=== PATIENT | female | born 1950 | race Caucasian/White ===

== ENCOUNTER → 2018-09-02 | Outpatient (CLI) | payer MEDICARE ==
--- NOTE | 2018-09-02 10:10 | US ---
EXAMINATION TYPE: US abdomen complete DATE OF EXAM: 09/02/2018 COMPARISON: NONE CLINICAL HISTORY: R10.13 Epigastric pain. acid reflux EXAM MEASUREMENTS: Liver Length: 17.1 cm Gallbladder Wall: 0.2 cm CBD: 0.5 cm Spleen: 9.6 cm Right Kidney: 10.3 x 5.3 x 4.5 cm Left Kidney: 9.9 x 4.7 x 6.2 cm Large body habitus Pancreas: wnl Liver: There is increased echogenicity of the hepatic parenchyma with diminished visualization of th e portal triads most commonly relating to hepatic steatosis and limiting evaluation for underlying he patic masses. Gallbladder: wnl Evidence for sonographic Quiros's sign: no CBD: wnl Spleen: wnl Right Kidney: wnl Left Kidney: wnl Upper IVC: wnl Abd Aorta: wnl The intrahepatic portion of the IVC and proximal abdominal aorta are within normal limits. There is no evidence of cholelithiasis. Common bile duct is unremarkable. The visualized portions of the hughes creas are homogenous. The spleen is unremarkable. Kidneys are symmetric and free of hydronephrosis. No renal lesions are seen. IMPRESSION: 1. No sonographic evidence of cholelithiasis nor acute cholecystitis. 2. Findings most commonly related to hepatic steatosis. Correlate with liver function tests.
== END | disposition home or self-care (01) ==
LOC: RADUSWWP 08:07
PROVIDERS: ATTEND Family Medicine
DX: K76.0 Fatty (change of) liver, not elsewhere classified (principal); R10.13 Epigastric pain
CPT/HCPCS: 76700

== ENCOUNTER → 2018-10-10 | Outpatient (CLI) | payer MEDICARE ==
--- NOTE | 2018-10-14 09:00 | MM ---
Reason for exam: screening (asymptomatic). Last mammogram was performed 2 years and 2 months ago. History: Patient is postmenopausal, history of other cancer, and is nulliparous. Family history of breast cancer in maternal aunt, breast cancer in maternal cousin, and breast cancer in sister. Benign right mammotome panel of the right breast, October 05, 2006. Reduction of the left breast, March 2004. Reduction of the right breast. Took estrogen for 16 years beginning at age 39. Took progesterone for 16 years beginning at age 39. Physical Findings: A clinical breast exam by your physician is recommended on an annual basis and results should be correlated with mammographic findings. MG 3D Screening Mammo W/Cad Bilateral CC and MLO view(s) were taken. Prior study comparison: August 18, 2016, bilateral MG 3d diag mammo w/cad NANCY. August 17, 2015, bilateral MG 3d diag mammo w/cad NANCY. There are scattered fibroglandular densities. Previous mammotome biopsy in the right breast. Focal asymmetry right upper outer quadrant is stable. No significant changes when compared with prior studies. ASSESSMENT: Benign, BI-RAD 2 RECOMMENDATION: Routine screening mammogram of both breasts in 1 year.
== END | disposition home or self-care (01) ==
LOC: RADMAMWWP 14:11
PROVIDERS: ATTEND Family Medicine
DX: Z12.31 Encounter for screening mammogram for malignant neoplasm of breast (principal)
CPT/HCPCS: 77063; 77067

== ENCOUNTER → 2018-10-15 | Outpatient (CLI) | payer MEDICARE ==
--- NOTE | 2018-10-15 15:46 | NM ---
EXAMINATION TYPE: NM hepatobiliary w EF DATE OF EXAM: 10/15/2018 COMPARISON: Abdominal ultrasound March 02, 2019 HISTORY: Epigastric abdominal pain per order. Additional symptoms of heartburn and reflux per patient . TECHNIQUE: After the intravenous administration of 4.24 mCi Tc 99m Mebrofenin hepatobiliary scintigra phy is performed. Immediate images post injection. FINDINGS: There is heterogeneous poor initial accumulation of tracer by the liver presumed product of underlyin g diffuse fatty infiltration as suspected on recent ultrasound. The gallbladder is visualized within 25 minutes. The small bowel activity is noted within 30 minutes. At one hour 8 ounces of oral ensu re plus is given to mimic CCK and gallbladder ejection fraction is calculated at 84 %, not deviated f rom the normal range. Therefore there is no scintigraphic evidence of cystic or common bile duct obs truction to suggest acute cholecystitis. IMPRESSION: Ejection fraction is 84%, some consider this abnormal or a hyperkinetic response.
== END ==
LOC: RADNMMAIN 12:34
PROVIDERS: ATTEND Family Medicine
DX: R10.13 Epigastric pain (principal)
CPT/HCPCS: 78226; A9537

== ENCOUNTER 2018-10-16 13:14 | Day surgery (SDC) | payer MEDICARE ==
[2018-10-14 16:36] VITALS: BMI 31.6
[~2018-10-16 13:14] MED LIST: DEXAMETHASONE SOD PHOSPHATE 10 MG/ML 1 ML VIAL IV ONE; LIDOCAINE 1% 20 ML VIAL (10MG/ML) FOR IV START INTRADERMA PRN; MIDAZOLAM (PF) 2 MG/2 ML VIAL IV PRN; ONDANSETRON 4 MG/2 ML VIAL IVP ONE; SCOPOLAMINE 1.5MG/72HR PATCH TRANSDERM ONE; ceFAZolin IN SWFI 2 GM/20 ML SYRINGE IVP ONE
[2018-10-16] MEDS: LACTATED RINGERS 1,000 ML IV SCH ×2 (13:51→14:25)
[2018-10-16] MEDS: fentaNYL (PF) 50 MCG/ML 2 ML AMP IV ONE ×2 (14:07→14:10)
[2018-10-16] MEDS ORDERED: SUCCINYLCHOLINE CHLORIDE 100 MG/5 ML SYR IV ONE (14:20)
[2018-10-16] MEDS ORDERED: fentaNYL (PF) 50 MCG/ML 2 ML AMP ONE (14:20)
[2018-10-16] MEDS ORDERED: PROPOFOL 10 MG/ML 20 ML VIAL IV ONE (14:20)
[2018-10-16] MEDS ORDERED: LIDOCAINE 1% INJ 10MG/ML (20 ML MDV) ONE (14:20)
[2018-10-16] MEDS ORDERED: MIDAZOLAM 2 MG/2 ML VIAL ONE (14:20)
[2018-10-16] MEDS ORDERED: ROPIVACAINE 5 MG/ML 30 ML VIAL ONE (14:20)
[2018-10-16] MEDS ORDERED: NEOSTIGMINE 1 MG/ML 10 ML VIAL ONE (14:20)
[2018-10-16] MEDS ORDERED: PHENYLEPHRINE-0.9% NACL SYG 1 MG/10 ML SYRINGE ONE (14:20)
[2018-10-16] MEDS ORDERED: ROCURONIUM BROMIDE 10 MG/ML 10 ML VIAL IV ONE (14:20)
[2018-10-16] MEDS ORDERED: GLYCOPYRROLATE 0.2 MG/ML 2 ML VIAL ONE (14:20)
--- NOTE | 2018-10-16 15:02 | P.ONQ ---
Anesthesiology Proc Note - PNB - Peripheral Nerve Block Performed Right Popliteal Single Time Out Performed: Yes Procedure Start Time: 14:05 Procedure Stop Time: 14:11 Indication: Acute Post-Operative Pain, Requested by physician Sedation Type: Sedate with meaningful contact maintained Preparation: Sterile Prep Position: Supine Catheter: None Needle Types: Facet Needle Size: 100mm (4") Needle Gauge: 20 Technique: Ultrasound Injectate: 0.5% Ropivacaine (see comment for volume) (15 mls) Blood Aspirated: No Pain Paresthesia on Injection Noted: No Resistance on Injection: Normal Events: Uneventful and Well Tolerated
--- NOTE | 2018-10-16 15:03 | P.ONQ ---
Anesthesiology Proc Note - PNB - Peripheral Nerve Block Performed Right Adductor Canal Single Time Out Performed: Yes Procedure Start Time: 14:12 Procedure Stop Time: 14:17 Indication: Acute Post-Operative Pain, Requested by physician Sedation Type: Sedate with meaningful contact maintained Preparation: Sterile Prep Position: Supine Catheter: None Needle Types: Facet Needle Size: 100mm (4") Needle Gauge: 20 Technique: Ultrasound Injectate: 0.5% Ropivacaine (see comment for volume) (15 mls) Blood Aspirated: No Pain Paresthesia on Injection Noted: No Resistance on Injection: Normal Events: Uneventful and Well Tolerated
[2018-10-16] MEDS ORDERED: LACTATED RINGERS 1,000 ML IV ONE (15:39)
--- NOTE | 2018-10-16 17:45 | P.OP ---
Date of Procedure: 10/16/18 Preoperative Diagnosis: 1. Right trimalleolar ankle fracture Postoperative Diagnosis: Same Procedure(s) Performed: 1. Open reduction internal fixation of trimalleolar ankle fracture (open reduction internal fixation of lateral, medial, and posterior malleolus) 2. Manual application of joint stress for radiography by physician, right ankle 3. Application of short leg splint by physician, right ankle Anesthesia: RONA, regional Surgeon: Brian Martinez Booking Agent #1: Ronit Patel Estimated Blood Loss (ml): 25 IV fluids (ml): 1,200 Pathology: none sent Condition: stable Disposition: PACU Indications for Procedure: The patient is very pleasant. Is healthy 68-year-old female who slipped on the ice while visiting a friend in [facility] and sustained an isolated injury to her right ankle. She was seen at a local urgent care where she was diagnosed with a grossly unstable trimalleolar ankle fracture. She underwent closed reduction and splinting. She also had a computed tomography scan and CT angiogram. She lives in this area and follow up with me in the office. I met with the patient preoperatively to discuss treatment options. I recommended open reduction internal fixation. She was seen by her primary care physician who cleared her for surgery. We discussed potential risks, patient of surgery including but not limited to risk of anesthesia, superficial infection, deep infection, delayed wound healing, nonunion the fracture site, malunion the fracture site, postoperative displacement of the ankle mortise, symptomatically hardware, damage to local blood vessels or nerves, DVT, PE, other medical complications, hardware failure, posttraumatic ankle arthritis, need for further surgery, and inability to regain preinjury level of function, and possibly loss of life or limb. The patient voiced understanding of this and also is also better other less common complications possible. She provided her verbal and written consent to go forward with surgery. Operative Findings: The patient's ankle was grossly unstable anterior preoperative fluoroscopy shots showed posterior subluxation of the ankle. Description of Procedure: The patient was notified Holding and the correct right ankle was marked with my initials. I reviewed the consent form with the patient and all of her questions were answered. The splint was taken down in preoperative holding and I evaluated the soft tissue. There was wrinkling of the skin and no swelling or fracture blisters. The patient was then given a popliteal and saphenous nerve block by anesthesia. She was brought back to the operating room and transferred to the OR table where general anesthetic and preoperative antibiotics were administered. Once the patient was under anesthesia she was positioned in the lateral decubitus position with the unaffected left side down and the affected right side up. An axillary roll was placed. She was secured in the lateral position with a beanbag. The unaffected left leg was scissored anteriorly and held to the table with foam and tape. The right leg was scissored posteriorly and a bone foam ramp was placed under the right leg to facilitate imaging. The patient was then secured to the table. The right leg was prepped and draped in standard sterile fashion. Prior to starting surgery timeout was performed identifying the correct patient, operative extremity, and procedure. The patient's leg was then elevated, exsanguinated with an Esmarch bandage, and the tourniquet was inflated to 250 mmHg. I began by outlining an incision over the posterolateral ankle for a posterolateral approach to the distal tibia and fibula. The skin incision was marked out midway between the Achilles tendon and posterior border of the fibula. Skin incision was made with a scalpel and dissection was carried down carefully to the subcutaneous tissue with tenotomy scissors. The sural nerve was identified and carefully retracted. The fascia over the peroneal tendons was identified and incised longitudinally in line with the skin incision. I began by exposing the fibula to help with reduction of the posterior malleolus via ligamental taxis. The fibula fracture was identified and carefully exposed. Once the fracture was adequately exposed consolidating hematoma and early callus was cleaned from the fracture sites using a pituitary Melo. I then gently pulled longitudinal traction on the distal fragment with a point-to- point reduction clamp. Once the fibula was out to length it was clamped. I was able to get a nice read along the posterior border of the fibula where the fracture fragments keyed in. I then developed the interval between the peroneal muscles on the FHL. The fascia over the FHL was incised longitudinally in line with the skin incision. The FHL was then retracted medially. The superior aspect of the posterior malleolus fracture was found to be comminuted. The fracture fragments were carefully debrided. Due to the comminution at the apex of the posterior malleolus fracture was unable to assess reduction via keying in of the posterior malleolus fragment superiorly. A lateral fluoroscopic image was used and the fracture fragment was pulled distally as the ankle was dorsiflexed. I then placed one gerardo of a large point- to-point reduction clamp through a percutaneous stab incision anterior to the ankle and the other gerardo over the posterior malleolus. Fluoroscopy was used to assess reduction of the ankle joint. Once the reduction was confirmed with fluoroscopy 0.0625 K wires were placed medially and laterally from the posterior malleolus into the anterior distal tibia. The [id number] reduction clamp was removed and the reduction held. I then contoured a plate over the posterior aspect of the distal tibia. Its position was verified with fluoroscopy on a mortise and lateral view. A nonlocking 3.5 mm screw was placed just proximal to the fracture bring the plate down to bone. I then placed 2 screws distally through the posterior malleolus fragment as a lag screw. A final screw was placed in the most proximal hole of the plate. Attention was then turned to the distal fibula. A 7 hole one third tubular plate was placed over the posterior aspect the distal fibula. Nonlocking 3.5 screws were placed proximal to the fracture. A re-5 nonlocking screw was placed in the most distal hole of the plate. A nonlocking 2.7 mm lag screw was placed through the plate across the fracture. Attention was then turned to the medial malleolus. There from the beanbag was let out and the patient was placed into the supine position. A longitudinal incision was made over the medial malleolus. Dissection was carried down carefully to the subcutaneous tissue. The periosteum over the distal tibia was sharply elevated with a scalpel. A 2.0 mm drill bit was used to create a unicortical hole just proximal to the fracture. A small [id number]-[id number] reduction clamp was then used with 1 gerardo placed in the unicortical drill hole and the second gerardo at the tip of the medial malleolus. The clamp was tightened and the fracture was anatomically reduced. I then placed a nonlocking solid 3.5 mm screws both measuring 55 mm through the medial malleolus fragment. Final fluoroscopic images were taken showing anatomic reduction of the ankle mortise and intact hardware. The patient's wounds were copiously irrigated. Both wounds were closed in layers. The tourniquet was let down. A 5 that all instrument, sponge , and sharp counts were correct. A sterile dressing was applied consisting of Betadine soaked Adaptic, 4 x 4, and web roll. The patient was transferred from the lateral position onto a gurney in the supine position and a well-padded bulky Gudino splint was placed with the ankle in neutral. The patient was then awoken from her anesthetic and brought to PACU without the procedure well. Ronit Patel PA-C was required as a skilled special education assistant for patient positioning, surgical exposure, retraction, placement of hardware and reduction of fracture, closure of wounds, and application of splint. Plan: The patient was given the option of staying overnight for observation and pain control versus discharging home. We will write orders for both. She is to remain strictly nonweightbearing on her operative extremity. She is to aggressively ice and elevate the leg. She'll follow-up in 2 weeks for splint removal and nonweightbearing x-rays of the affected ankle.
[2018-10-16] MEDS ORDERED: HYDROmorphone 0.5 MG/0.5 ML SYRINGE IVP PRN ×3 (17:48)
[2018-10-16] MEDS ORDERED: hydrOXYzine PAMOATE 25 MG CAP PO PRN (17:48)
[2018-10-16] MEDS ORDERED: SENNOSIDES-DOCUSATE SODIUM 1 EACH TAB PO PRN (17:48)
[2018-10-16] MEDS ORDERED: ONDANSETRON 4 MG/2 ML VIAL IVP PRN (17:48)
[2018-10-16] MEDS ORDERED: HYDROcodone/APAP 5-325MG 1 EACH TAB PO PRN ×2 (17:48)
[2018-10-16] MEDS ORDERED: LACTATED RINGERS 1,000 ML IV SCH (18:00)
[2018-10-16 18:04] VITALS: TEMP 97.2
[2018-10-16 18:07] VITALS: RESP 16
[2018-10-16] MEDS: HYDROmorphone 0.5 MG/0.5 ML SYRINGE IVP PRN ×4 (18:12→18:46)
[2018-10-16] MEDS ORDERED: HYDROcodone/APAP 5-325MG 1 EACH TAB PO ONE (19:16)
[2018-10-16 19:38] VITALS: BP 145/87; PULSE 102
[2018-10-17] MEDS ORDERED: ceFAZolin IN SWFI 2 GM/20 ML SYRINGE IVP SCH
--- NOTE | 2018-10-17 06:48 | FL ---
EXAMINATION TYPE: FL guidance operating room, XR ankle limited RT DATE OF EXAM: 10/16/2018 CLINICAL HISTORY: Trimalleolar fracture. TECHNIQUE: Fluoroscopy. Limited intraoperative views right ankle. COMPARISON: None. FINDINGS: Fluoroscopic guidance was provided during open reduction internal fixation procedure perfo rmed by Dr. Martinez. A total of 2 minutes 29 seconds of fluoroscopic time was utilized during the p rocedure and 3 spot intraoperative images are acquired. Intraoperative images acquired show placement of lateral fixating plate through lateral malleolus fra cture. 2 fixating screws through medial malleolus fracture. There is additional posterior fusion plat e through oblique posterior malleoli fracture. Alignment is satisfactory on intraoperative images obt ained. IMPRESSION: As Above.
[2018-10-17] MEDS ORDERED: ENOXAPARIN 40 MG/0.4 ML SYRINGE SQ SCH (09:00)
--- NOTE | 2018-10-21 07:51 | CDI ---
Date: 10/21/18 CDS/Interpretative Dancer Name: Wale Lozano Phone: If any questions, call Xiomara Marcos [employer]iler at [phone] Patient Name: Brando Mckinley Admit Date: 10/16/18 Discharge Date: 10/16/18 ATTENTION: The [facility] Coding Staff appreciate your assistance in clarifying documentation. Please respond to the clarification below the line at the bottom and electronically sign. The [facility] Coding staff will review the response and follow-up if needed. Please note: Queries are made part of the Legal Health Record. If you have any questions, please contact the Steam [employer] Oiler. Dear Dr. Octavio Hoyos MD In order to capture the correct CPT code(s), please clarify the location of the popliteal nerve block. In your professional opinion what was the exact location of the popliteal nerve block? Popliteal fossa Saphenous popliteal Thank you for your kind consideration. MTDD
== END 2018-10-16 19:59 | disposition home or self-care (01) ==
LOC: OR 13:14 → 4SSUR 18:18 → OR 18:18
PROVIDERS: ATTEND Orthopaedic Surgery
DX: S82.851A Displaced trimalleolar fracture of right lower leg, initial encounter for closed fracture (principal); W00.0XXA Fall on same level due to ice and snow, initial encounter; J45.909 Unspecified asthma, uncomplicated; E78.5 Hyperlipidemia, unspecified; M19.90 Unspecified osteoarthritis, unspecified site; K21.9 Gastro-esophageal reflux disease without esophagitis; F41.9 Anxiety disorder, unspecified; Z91.030 Bee allergy status; Z79.1 Long term (current) use of non-steroidal anti-inflammatories (NSAID); Z79.51 Long term (current) use of inhaled steroids; Z79.899 Other long term (current) drug therapy
CPT/HCPCS: 27822; 64450; 73600; C1713; J2250 ×2; J1100; J2710; J2405; J2001; J3010; J2795; J2370; J0330; J2704; J1170; J0690